=== PATIENT | male | born 1990 | race Two or more races ===

== ENCOUNTER 2018-02-07 20:49 | Emergency (ER) | payer OTHER ==
--- NOTE | 2018-02-07 21:29 | EDPHY ---
H & P Stated Complaint: Head lack at work denies LOC Source: Patient Exam Limitations: No limitations - Personal History Current Tetanus Diphtheria and Acellular Pertussis (TDAP): Yes - Medical/Surgical History Hx Asthma: No Hx Chronic Respiratory Disease: No Hx Diabetes: No Hx Cardiac Disease: No Hx Renal Disease: No Hx Cirrhosis: No Hx Alcoholism: No Hx HIV/AIDS: No Hx Splenectomy or Spleen Trauma: No Other PMH: denies - Social History Smoking Status: Never smoked Time Seen by Provider: 02/07/18 21:28 HPI/ROS: HPI: This is a 27-year-old male who presents with Chief Complaint: Head laceration at work, denies LOC Location: Scalp Quality: Laceration Duration: 1.5 hours prior to arrival Signs and Symptoms: + bleeding, no radiation, no numbness, no weakness, no tingling, no incontinence, no decreased range of motion, no swelling, no pain, no fever Timing: Acute Severity: [id number] Context: Patient presents from work with complaints of accidentally walking into the tip of a grease unit that cut the top of his scalp. He reports that he felt mild, constant, nonradiating pain. The concern was that it started to bleed quite copiously. He had applied direct pressure for approximately 20 min to get the bleeding to stop. Does not take any blood thinners. Denies LOC/ head injury/neck pain/dizziness/nausea/vomiting/amnesia. Reports tetanus up-to- date. Modifying Factors: Direct pressure Comment: ROS: see HPI Constitutional: No fever, no chills, no weight loss Eyes: No blurred vision Respiratory: No shortness of breath, no cough Cardiovascular: No chest pain Gastrointestinal: No nausea, no vomiting no diarrhea Genitourinary: No dysuria Extremities: No myalgias Neurologic: No weakness, no numbness Skin: No rashes Hematologic: No bruising, no bleeding MEDICAL/SURGICAL/SOCIAL HISTORY: Medical history: Generally healthy. Does not take any regular medications. Surgical history: Denies Social history: Employed. CONSTITUTIONAL: Extremely polite and cooperative adult male awake and alert, no obvious distress HEENT: Superficial, irregular laceration noted to the top the scalp.normocephalic, PERRL, EOMI. no globe entrapment, no raccoon eyes. no Chairez signs.Tympanic membranes clear. No tympanic membrane rupture. Nares patent; no septal hematoma. Oropharynx clear, no exudate and moist pink mucosa. No malocclusion. no dental trauma. Airway patent. No lymphadenopathy. NECK: supple, no midline tenderness, flexion 45 degrees, extension 45 degrees, right and left lateral flexion 45 degrees. No meningismus. Cardiovascular: Normal S1/S2, regular rate, regular rhythm, without murmur rub or gallop. PULMONARY/CHEST: Symmetrical and nontender. no crepitus. Clear to auscultation bilaterally. Good air movement. No accessory muscle usage. ABDOMEN: Soft, nondistended, nontender, no ecchymosis, no rebound, no guarding , no peritoneal signs, no masses or organomegaly. No CVAT. EXTREMITIES: 2/2 pulses, no deformities, no clubbing, no cyanosis or edema. NEUROLOGICAL: no focal neuro deficits. GCS 15. SKIN: Warm and dry, no erythema. no rash. Good capillary refill. (Carolina Burch) Constitutional: Initial Vital Signs Temperature (C) 36.7 C 02/07/18 20:52 Heart Rate 69 02/07/18 20:52 Respiratory Rate 18 02/07/18 20:52 Blood Pressure 127/90 H 02/07/18 20:52 O2 Sat (%) 95 02/07/18 20:52 O2 Delivery Mode Room Air Allergies/Adverse Reactions: No Known Allergies Allergy (Unverified 02/07/18 20:51) Medical Decision Making Procedures: Procedure: Laceration repair. Verbal consent was obtained from the patient. The 1/4 inch, simple, deep, linear laceration on the occipital scalp was NOT anesthetized. The wound was irrigated, draped and explored to its base with a gloved finger. There were no deep structures involved. No tendon injury was identified. The wound was repaired with #3, huang. Good hemostasis was achieved and patient tolerated procedure well. Area cleaned and bacitracin applied. The procedure was performed by myself. (Carolina Burch) ED Course/Re-evaluation: Head CT scan not indicated based on [place] CT head protocol. No LOC. No neurological deficits. Tetanus is current. Patient politely declined Tylenol and let topical. Area copiously irrigated and huang used to close laceration. Bacitracin applied. No signs of concussion at this time. This patient was seen under the supervision of my secondary supervising physician. I evaluated care for this patient independently. Discussed this patient with . (Carolina Burch) I did not see this patient while he was in the emergency department. However his care was discussed with the PA while the patient was in the department. I agree with treatment plan and management (López Hewitt) Differential Diagnosis: Head injury including but not limited to concussion, skull fracture, intraparenchymal contusion, subarachnoid, subdural and epidural hematoma. (Carolina Burch) Departure - Departure Disposition: Home, Routine, Self-Care Clinical Impression: Laceration of scalp Qualifiers: Encounter type: initial encounter Qualified Code(s): S01.01XA - Laceration without foreign body of scalp, initial encounter Condition: Good Instructions: Staple Care (ED), Facial Laceration (ED) Additional Instructions: Keep the huang dry for 48 hours. After 48 hours, you may wash the site daily with mild soap and water; then pat dry. Take Tylenol 650 mg every 4 hours and/or Ibuprofen 600 mg every 8 hours with food as needed for pain. Apply ice for 30 minutes at a time; 2-3 times per day for the next 1-2 days. Wound Care Follow-Up: Removal of huang in [5-7 ] days. Staple removal is complimentary in uncomplicated cases. Infection or abnormal findings would require reevaluation by the MD. In that case, you may be billed. Referrals: [facility],. [Clinic] - As per Instructions
[2018-02-07 22:26] VITALS: BP 133/75
== END 2018-02-07 22:20 | disposition home or self-care (01) ==
PROC: 0HQ0XZZ Repair Scalp Skin, External Approach (ICD-10-PCS; principal; 2018-02-07)
DX: S01.01XA Laceration without foreign body of scalp, initial encounter (principal); W26.8XXA Contact with other sharp object(s), not elsewhere classified, initial encounter; Y99.0 Civilian activity done for income or pay; Y93.89 Activity, other specified